=== PATIENT | female | born 1960 | race Caucasian/White ===

== ENCOUNTER 2017-08-21 17:01 | Emergency (ER) | payer OTHER ==
[~2017-08-21] VITALS: Ht 162.6 cm; Wt 90.3 kg
[~2017-08-21 17:01] MED LIST: ZOFRAN ODT8 MG PO
[2017-08-21 17:09] VITALS: BP 122/77
[2017-08-21] MEDS ORDERED: MOTRIN800 MG PO (19:18)
[2017-08-21] MEDS ORDERED: PERCOCET 5/31 TABLET PO (19:18)
== END 2017-08-21 20:55 | disposition home or self-care (01) ==
LOC: EME 17:01
PROC: 2W3MX1Z Immobilization of Left Lower Extremity using Splint (ICD-10-PCS; principal; 2017-08-21)
DX: S92.322A Displaced fracture of second metatarsal bone, left foot, initial encounter for closed fracture (principal); S92.332A Displaced fracture of third metatarsal bone, left foot, initial encounter for closed fracture; S92.342A Displaced fracture of fourth metatarsal bone, left foot, initial encounter for closed fracture; W10.2XXA Fall (on)(from) incline, initial encounter; I10 Essential (primary) hypertension; E78.5 Hyperlipidemia, unspecified; Z85.3 Personal history of malignant neoplasm of breast
CPT/HCPCS: 73630; 99281; 99285

== ENCOUNTER → 2017-09-23 | Outpatient (CLI) | payer OTHER ==
[~2017-09-23] MED LIST changes: +MOTRIN800 MG PO; +PERCOCET 5/31 TABLET PO
== END | disposition home or self-care (01) ==
LOC: CDC 11:33
DX: Z01.810 Encounter for preprocedural cardiovascular examination (principal); S92.322A Displaced fracture of second metatarsal bone, left foot, initial encounter for closed fracture; S92.335A Nondisplaced fracture of third metatarsal bone, left foot, initial encounter for closed fracture; S92.342A Displaced fracture of fourth metatarsal bone, left foot, initial encounter for closed fracture; M79.672 Pain in left foot; R26.2 Difficulty in walking, not elsewhere classified; R00.1 Bradycardia, unspecified
CPT/HCPCS: 93000